=== PATIENT | male | born 1950 | race Caucasian/White ===

== ENCOUNTER → 2016-08-24 | Outpatient (CLI) | payer BC ==
--- NOTE | 2016-08-24 11:19 | US ---
EXAMINATION TYPE: US venous doppler duplex LE BI DATE OF EXAM: 08/24/2016 11:08 AM COMPARISON: NONE CLINICAL HISTORY: R60.0 LOCALIZED EDEMA. SIDE PERFORMED: Bilateral VESSELS IMAGED: External Iliac Vein (EIV) Common Femoral Vein Deep Femoral Vein Greater Saphenous Vein * Femoral Vein Popliteal Vein Small Saphenous Vein * Proximal Calf Veins- not seen, large calves (* superficial vessels) TECHNOLOGIST IMPRESSION: Right Leg: Negative for DVT Left Leg: Negative for DVT No popliteal fossa lesion was identified. IMPRESSION: This examination is negative for DVT in both legs.
== END | disposition home or self-care (01) ==
LOC: RADUSWWP 10:03
PROVIDERS: ATTEND Family Medicine
DX: R60.0 Localized edema (principal)
CPT/HCPCS: 93970

== ENCOUNTER → 2017-10-08 | Outpatient (CLI) | payer BC ==
--- NOTE | 2017-10-08 13:26 | US ---
EXAMINATION TYPE: US kidneys/renal and bladder DATE OF EXAM: 10/08/2017 COMPARISON: NONE CLINICAL HISTORY: N28.9 Disorder of kidney and ureter unspecified; patient stated had MRI at [facility] which showed renal cyst(s); back pain EXAM MEASUREMENTS: Right Kidney: 11.4 x 5.5 x 5.9 cm on size recheck Left Kidney: 12.3 x 6.0 x 7.0 cm Post Void Residual Volume: bladder emptied Right Kidney: No hydronephrosis or masses seen; hypoechoic, crescent shaped area is noted adjacent to mid and lower renal periphery which is sonographic "sweat sign" suggesting renal failure. Left Kidney: multiple para pelvic cysts are imaged with largest as simple cyst medial upper = 2.6 x 3 .3 x 2.4cm. Bladder: not fully distended, no masses seen Bilateral Jets seen: Yes Normal Post Void Residual: Yes IMPRESSION: 1. Renal failure changes. 2. Parapelvic cyst as noted.
== END | disposition home or self-care (01) ==
LOC: RADUSWWP 10:10
PROVIDERS: ATTEND Family Medicine
DX: N28.1 Cyst of kidney, acquired (principal); N19 Unspecified kidney failure
CPT/HCPCS: 76770

== ENCOUNTER → 2017-12-06 | Outpatient (CLI) | payer BC ==
[2017-12-06 11:06] VITALS: BMI 35.3
== END | disposition home or self-care (01) ==
LOC: MNTWWP 09:19
PROVIDERS: ATTEND Family Medicine
DX: R73.09 Other abnormal glucose (principal)
CPT/HCPCS: 97802

== ENCOUNTER → 2020-07-06 | Outpatient (CLI) | payer MEDICARE ==
--- NOTE | 2020-07-06 15:25 | US ---
EXAMINATION TYPE: US kidneys/renal and bladder DATE OF EXAM: 07/06/2020 COMPARISON: NONE CLINICAL HISTORY: Chronic kidney Disease, Stage 3 N18.3. CKD EXAM MEASUREMENTS: Right Kidney: 10.1 x 4.4 x 3.5 cm Left Kidney: 10.9 x 4.4 x 4.6 cm Right Kidney: Lobulated cortex. There may be a dromedary hump. Left Kidney: No hydronephrosis or masses seen Bladder: wnl Bilateral Jets seen: Yes IMPRESSION: No acute ultrasound abnormality bilateral kidneys
== END | disposition home or self-care (01) ==
LOC: RADUSWWP 14:41
PROVIDERS: ATTEND Internal Medicine Nephrology
DX: N18.30 Chronic kidney disease, stage 3 unspecified (principal)
CPT/HCPCS: 76770

== ENCOUNTER 2020-10-16 10:46 | Emergency (ER) | payer MEDICARE ==
[2020-10-16 10:50] VITALS: RESP 18; TEMP 98
--- NOTE | 2020-10-16 12:11 | ED ---
ENT HPI - General Chief complaint: ENT Stated complaint: Post Nose Bleed Issue Time Seen by Provider: 10/16/20 10:56 Source: patient Mode of arrival: ambulatory Limitations: no limitations - History of Present Illness Initial comments: Patient is a 70-year-old male presenting to the emergency Department on ting his nasal packing removed. Patient states 2 days ago he started having nosebleed, he was not able to control it at home so he went to [facility] in [place]. Patient states they were able to slow down the nosebleed but they inserted a nasal packing anyway. He was told he needed to be removed in 2-3 days. Patient presents today wanting the packing removed. He is not on blood thinners. He states this is not ever happened before. He denies any falls or trauma. Denies any fevers or chills. He has no further complaints. - Related Data Home Medications Medication Instructions Recorded Confirmed Enalapril [Vasotec] 5 mg PO BID 04/19/15 04/20/15 Zolpidem [Ambien] 5 mg PO HS PRN 04/19/15 04/20/15 amLODIPine [Norvasc] 10 mg PO DAILY 04/19/15 04/20/15 atenoloL [Tenormin] 50 mg PO BID 04/19/15 04/20/15 Allergies Allergy/AdvReac Type Severity Reaction Status Date / Time oxycodone Allergy Itching, Verified 10/16/20 10:51 NAUSEA AND VOMITING hydromorphone HCl AdvReac Nausea & Verified 10/16/20 10:51 [From Dilaudid] Vomiting Review of Systems ROS Statement: Those systems with pertinent positive or pertinent negative responses have been documented in the HPI. ROS Other: All systems not noted in ROS Statement are negative. Past Medical History Past Medical History: GERD/Reflux, Hearing Disorder / Deafness, Hyperlipidemia, Hypertension Additional Past Medical History / Comment(s): LEFT EAR GRINDSTONE History of Any Multi-Drug Resistant Organisms: None Reported Past Surgical History: Orthopedic Surgery Additional Past Surgical History / Comment(s): RIGHT KNEE ARTHROSCOPIC, RIGHT KNEE ARTHROTOMY,LEFT EAR X3 Additional Past Anesthesia/Blood Transfusion Reaction / Comment(s): " TAKES LONGER WAKING UP" Past Psychological History: No Psychological Hx Reported Smoking Status: Never smoker Past Alcohol Use History: None Reported Past Drug Use History: None Reported - Past Family History Father Family Medical History: Cancer Additional Family Medical History / Comment(s): LUNG CANCER General Exam - General Exam Comments Initial Comments: GENERAL: Patient is well-developed and well-nourished. Patient is nontoxic and in no acute distress. HEAD: Atraumatic, normocephalic. EYES: Pupils equal round and reactive to light, extraocular movements intact, sclera anicteric, conjunctiva are normal. Eyelids were unremarkable. ENT: TMs normal, nares patent, oropharynx clear without exudates. Moist mucous membranes. Left sided nasal packing present. NECK: Normal range of motion, supple without lymphadenopathy or JVD. LUNGS: Unlabored respirations. Breath sounds clear to auscultation bilaterally and equal. No wheezes rales or rhonchi. HEART: Regular rate and rhythm without murmurs, rubs or gallops. ABDOMEN: Soft, nontender, normoactive bowel sounds. No guarding, no rebound. No masses appreciated. : Deferred MUSCULOSKELETAL: Normal extremities with adequate strength and normal range of motion, no pitting or edema. No clubbing or cyanosis. NEUROLOGICAL: Patient is alert and oriented x 3. Motor and sensory are also intact. Cranial nerves II through XII grossly intact. Symmetrical smile. Normal speech, normal gait. PSYCH: Normal mood, normal affect. SKIN: Warm, Dry, normal turgor, no rashes or lesions noted. Limitations: no limitations Course Vital Signs 10/16/20 10:48 Temperature 98.0 F Pulse Rate 58 L Respiratory 18 Rate Blood Pressure 182/110 O2 Sat by Pulse 98 Oximetry Procedures - Procedures Initial comment: Removed left-sided nasal packing. Patient tolerated procedure well. No complications. Mild bleeding afterwards, this is controlled after about 15 minutes of pressure. No active bleeding at this time. Medical Decision Making - Medical Decision Making Patient is a 70-year-old male here requesting his nasal packing tumor removed. Patient had this placed at [facility] in [place] 2 days ago. Patient is on blood thinners. I did explain the risk of rebleed and possible reinsertion of the packing if bleeding persists. He is in agreement with this. I did remove the packing, was some mild bleeding at first, however it was controlled after a nasal clamp for about 20 minutes. There is no active bleeding at this time. Patient is stable for discharge. I recommended following up with his PCP. Return parameters were discussed with the patient he verbalizes understanding. Case discussed with Dr. Louis. Disposition Clinical Impression: Encounter for removal of nasal packing Disposition: HOME SELF-CARE Condition: Stable Instructions (If sedation given, give patient instructions): Nosebleed (ED) Additional Instructions: Please return to the Emergency Department if symptoms worsen or any other concerns. Follow will up with your doctor as needed. Is patient prescribed a controlled substance at d/c from ED?: No Referrals: Cuate Isbell DO [Primary Care Provider] - 1-2 days Time of Disposition: 12:11
[2020-10-16 13:00] VITALS: BP 160/105; PULSE 56
== END 2020-10-16 12:20 | disposition home or self-care (01) ==
LOC: EC 10:46
DX: Z48.01 Encounter for change or removal of surgical wound dressing (principal); E78.5 Hyperlipidemia, unspecified; I10 Essential (primary) hypertension; K21.9 Gastro-esophageal reflux disease without esophagitis; H91.90 Unspecified hearing loss, unspecified ear; Z88.5 Allergy status to narcotic agent; Z80.1 Family history of malignant neoplasm of trachea, bronchus and lung
CPT/HCPCS: 99281